=== PATIENT | female | born 1995 | race Asian ===

== ENCOUNTER 2018-02-02 22:26 | Emergency (ER) | payer BC ==
[~2018-02-02] VITALS: Ht 157.5 cm; Wt 47.2 kg
[2018-02-02 22:43] VITALS: BP_SYST 94
[2018-02-03 00:32] VITALS: BP_SYST 102
== END 2018-02-03 00:32 | disposition home or self-care (01) ==
LOC: SED 22:26
DX: R19.7 Diarrhea, unspecified (principal); Z88.1 Allergy status to other antibiotic agents
CPT/HCPCS: 99283